=== PATIENT | female | born 1955 | race Caucasian/White ===

== ENCOUNTER 2017-04-12 17:49 | Inpatient (IN) | payer MEDICARE, BC ==
[~2017-04-12] VITALS: Ht 165.1 cm; Wt 103.2 kg
[~2017-04-12 17:49] MED LIST: ATIVAN2 MG PO; AUGMENTIN500TAB PO; BENADRYL 25MG C25 MG PO; CENTRUM SILVER PO; CIPROFLOXACIN250 MG PO; CIPROFLOXACN250 MG PO; CYMBALTA60 MG PO; DIGOXIN0.125 MG PO; DOXAZOSIN1 MG PO; EFFEXOR XR150 MG PO; EQL IBUPROFEN200 MG PO; FENOFIBRATE145 MG PO; FLEXERIL OR; FLEXERIL PO; FLONASE NASAL50 MCG; FLUARIX QUADRIV1 INJ IM; FLULAVAL IM; FLUZONE SPLT1 M1 IM; FUROSEMIDE40 MG PO; GLIPIZIDE5 MG PO; GLYB/METFOR1 PO; HYDROCO/APAP1 TA9 PO; LORTAB 7.5 PO; LOVASTATIN10 M1 PO; LOVASTATIN10 MG PO; LYRICA75 MG PO; MEDDOSEPAK PO; MELOXICAM7.5 MG PO; METFORMIN1000 MG PO; METFORMIN500 MG PO; METHOCARBAM500 MG PO; METRONIDAZOLE500 MG PO; NAPROSYN500 MG PO; NEURONTIN300 MG PO; OMEPRAZOLE20 MG PO; PERCOCET1 TA2 PO; PROVENTIL HFA IN; PROVIGIL100 MG PO; SEROQUEL200 MG PO; SPIRIVA HANDIHALER INH; SYNTHROID50 MCG PO; TEMAZEPAM30 MG PO; TRAZODONE HCL100 MG PO; TRAZODONE150 MG PO; ULTRAM50 M1 PO; VENTOLIN HFA IN; XARELTO10 MG PO; ZITHROMAX500 MG PO; ZPAK PO; ZYRTEC-D AL1 OR; ZYRTEC-D AL1 PO; ZYRTEC-D ALG PO
[2017-04-12 18:19] LABS: URINE BILIRUBIN - DIPSTICK NEGATIVE (NEGATIVE); URINE BLOOD DIPSTICK NEGATIVE (NEGATIVE); URINE COLOR YELLOW; URINE GLUCOSE - DIPSTICK >=1000 mg/dL (NEGATIVE); URINE KETONE NEGATIVE (NEGATIVE); URINE LEUK ESTERASE NEGATIVE (NEGATIVE); URINE PROTEIN - DIPSTICK NEGATIVE (NEG-TRACE); URINE UROBILINOGEN - DIPSTICK 0.2 E.U./dL (0.2)
[2017-04-12] MEDS ORDERED: PROZAC10 MG PO (18:27)
[2017-04-12 18:32] LABS: URINE NITRITE - DIPSTICK POSITIVE (Negative)
[2017-04-12 18:40] LABS: URINE CLARITY TURBID
[2017-04-12 18:41] LABS: URINE BACTERIA MANY hpf; URINE SQUAMOUS EPITHELIAL CELL FEW EPI/hpf (0-FEW)
[2017-04-12 19:05] LABS: HEMATOCRIT 40.3 % (37.0-47.0); HEMOGLOBIN 13.7 g/dl (12.0-16.0); IMMATURE GRANULOCYTES 0.4 % (0.0-1.0); MEAN CELL VOLUME 92.9 fL CALC (80.0-100.0); MEAN CORPUSCULAR HGB 31.6 pG CALC (26.0-32.0); NEUT# 13.01 thou/uL (2.00-7.15); RED BLOOD COUNT 4.34 mill/uL (4.20-5.60); RED CELL DISTRI WIDTH 12.8 % (11.5-15.5)
[2017-04-12 19:18] LABS: ALBUMIN 4.5 g/dL (3.2-5.0); ALKALINE PHOSPHATASE 51 u/l (38-126); ANION GAP 18 (6-22 (CALC)); BILIRUBIN, TOTAL 0.9 mg/dL (0.0-1.4); BUN 13 mg/dL (8-23); BUN/CREATININE RATIO 17 (12-20 (CALC)); CALCIUM 9.5 mg/dL (8.4-10.2); CARBON DIOXIDE 26 mmol/l (22-30); CHLORIDE 99 mmol/l (95-108); CREATININE 0.8 mg/dL (0.5-1.0); GFR > 60 ML/MIN (>=60 (CALC)); GFR FOR AFR.AMER. > 60 ML/MIN (>=60 (CALC)); GLUCOSE 199 mg/dL (82-115); POTASSIUM 3.2 mmol/l (3.5-5.1); SGOT/AST 23 u/l (9-36); SGPT/ALT 27 u/l (11-66); SODIUM 140 mmol/l (137-146); TOTAL PROTEIN 7.6 g/dL (6.3-8.2)
[2017-04-12 19:20] LABS: ACT PARTIAL THROMBO TIME 25.8 SECONDS (20.0-32.5); PROTHROMBIN TIME 10.7 SECONDS (9.0-12.5)
[2017-04-13] VITALS (12 sets, daily range): BP systolic 94–135; BP diastolic 38–77
[2017-04-14 00:28] VITALS: BP 117/70
[2017-04-14 03:52] VITALS: BP 113/70
[2017-04-14 05:57] LABS: HEMATOCRIT 34.8 % (37.0-47.0); HEMOGLOBIN 11.2 g/dl (12.0-16.0); IMMATURE GRANULOCYTES 0.3 % (0.0-1.0); MEAN CELL VOLUME 98.3 fL CALC (80.0-100.0); MEAN CORPUSCULAR HGB 31.6 pG CALC (26.0-32.0); MEAN CORPUSCULAR HGB CONC 32.2 g/L CALC (32.0-36.0); NEUT# 8.22 thou/uL (2.00-7.15); RED BLOOD COUNT 3.54 mill/uL (4.20-5.60); RED CELL DISTRI WIDTH 13.3 % (11.5-15.5)
[2017-04-14 06:04] LABS: ALBUMIN 3.1 g/dL (3.2-5.0); ALKALINE PHOSPHATASE 43 u/l (38-126); ANION GAP 14 (6-22 (CALC)); BILIRUBIN, TOTAL 0.5 mg/dL (0.0-1.4); BUN 22 mg/dL (8-23); BUN/CREATININE RATIO 23 (12-20 (CALC)); CALCIUM 7.3 mg/dL (8.4-10.2); CARBON DIOXIDE 25 mmol/l (22-30); CHLORIDE 105 mmol/l (95-108); CREATININE 0.9 mg/dL (0.5-1.0); GFR > 60 ML/MIN (>=60 (CALC)); GFR FOR AFR.AMER. > 60 ML/MIN (>=60 (CALC)); GLUCOSE 203 mg/dL (82-115); POTASSIUM 3.6 mmol/l (3.5-5.1); SGOT/AST 28 u/l (9-36); SGPT/ALT 28 u/l (11-66); SODIUM 140 mmol/l (137-146); TOTAL PROTEIN 5.5 g/dL (6.3-8.2)
[2017-04-14 09:01] VITALS: BP 131/75
[2017-04-14 16:00] VITALS: BP 141/72
[2017-04-14 19:10] VITALS: BP 110/64
[2017-04-14 23:29] VITALS: BP 112/64
[2017-04-15 05:05] VITALS: BP 141/77
[2017-04-15 05:57] LABS: HEMATOCRIT 31.3 % (37.0-47.0); HEMOGLOBIN 10.1 g/dl (12.0-16.0); IMMATURE GRANULOCYTES 1.4 % (0.0-1.0); MEAN CELL VOLUME 98.7 fL CALC (80.0-100.0); MEAN CORPUSCULAR HGB 31.9 pG CALC (26.0-32.0); MEAN CORPUSCULAR HGB CONC 32.3 g/L CALC (32.0-36.0); NEUT# 7.25 thou/uL (2.00-7.15); RED BLOOD COUNT 3.17 mill/uL (4.20-5.60); RED CELL DISTRI WIDTH 13.2 % (11.5-15.5)
[2017-04-15 06:08] LABS: ALBUMIN 2.7 g/dL (3.2-5.0); ALKALINE PHOSPHATASE 39 u/l (38-126); ANION GAP 11 (6-22 (CALC)); BILIRUBIN, TOTAL 0.4 mg/dL (0.0-1.4); BUN 22 mg/dL (8-23); BUN/CREATININE RATIO 23 (12-20 (CALC)); CALCIUM 7.2 mg/dL (8.4-10.2); CARBON DIOXIDE 27 mmol/l (22-30); CHLORIDE 103 mmol/l (95-108); GFR 56 ML/MIN (>=60 (CALC)); GFR FOR AFR.AMER. > 60 ML/MIN (>=60 (CALC)); GLUCOSE 171 mg/dL (82-115); POTASSIUM 3.4 mmol/l (3.5-5.1); SGOT/AST 57 u/l (9-36); SGPT/ALT 31 u/l (11-66); SODIUM 138 mmol/l (137-146); TOTAL PROTEIN 5.5 g/dL (6.3-8.2)
[2017-04-15 09:38] VITALS: BP 117/63
[2017-04-15 12:25] VITALS: BP 123/76
[2017-04-15 17:00] VITALS: BP 137/78
[2017-04-15 20:45] VITALS: BP 133/76
[2017-04-16 04:45] VITALS: BP 121/62
[2017-04-16 06:10] LABS: HEMATOCRIT 33.1 % (37.0-47.0); HEMOGLOBIN 10.6 g/dl (12.0-16.0); IMMATURE GRANULOCYTES 0.8 % (0.0-1.0); MEAN CELL VOLUME 97.6 fL CALC (80.0-100.0); MEAN CORPUSCULAR HGB 31.3 pG CALC (26.0-32.0); NEUT# 5.78 thou/uL (2.00-7.15); RED BLOOD COUNT 3.39 mill/uL (4.20-5.60); RED CELL DISTRI WIDTH 13.2 % (11.5-15.5)
[2017-04-16 06:23] LABS: ANION GAP 14 (6-22 (CALC)); BUN 14 mg/dL (8-23); BUN/CREATININE RATIO 21 (12-20 (CALC)); CALCIUM 8.1 mg/dL (8.4-10.2); CARBON DIOXIDE 28 mmol/l (22-30); CHLORIDE 103 mmol/l (95-108); CREATININE 0.7 mg/dL (0.5-1.0); GFR > 60 ML/MIN (>=60 (CALC)); GFR FOR AFR.AMER. > 60 ML/MIN (>=60 (CALC)); GLUCOSE 135 mg/dL (82-115); POTASSIUM 3.3 mmol/l (3.5-5.1); SODIUM 141 mmol/l (137-146)
[2017-04-16 07:58] VITALS: BP 143/43
[2017-04-16 12:15] VITALS: BP 140/69
[2017-04-16 16:00] VITALS: BP 144/72
[2017-04-17 04:00] VITALS: BP 137/59
[2017-04-17 06:12] LABS: HEMATOCRIT 32.1 % (37.0-47.0); HEMOGLOBIN 10.7 g/dl (12.0-16.0); MEAN CELL VOLUME 94.7 fL CALC (80.0-100.0); MEAN CORPUSCULAR HGB 31.6 pG CALC (26.0-32.0); MEAN CORPUSCULAR HGB CONC 33.3 g/L CALC (32.0-36.0); NEUT# 6.41 thou/uL (2.00-7.15); RED BLOOD COUNT 3.39 mill/uL (4.20-5.60); RED CELL DISTRI WIDTH 13.1 % (11.5-15.5)
[2017-04-17 06:32] LABS: ANION GAP 14 (6-22 (CALC)); BUN 11 mg/dL (8-23); BUN/CREATININE RATIO 18 (12-20 (CALC)); CALCIUM 8.6 mg/dL (8.4-10.2); CARBON DIOXIDE 28 mmol/l (22-30); CHLORIDE 102 mmol/l (95-108); CREATININE 0.6 mg/dL (0.5-1.0); GFR > 60 ML/MIN (>=60 (CALC)); GFR FOR AFR.AMER. > 60 ML/MIN (>=60 (CALC)); GLUCOSE 141 mg/dL (82-115); POTASSIUM 3.4 mmol/l (3.5-5.1); SODIUM 141 mmol/l (137-146)
[2017-04-17 07:40] VITALS: BP 135/51
[2017-04-17] MEDS ORDERED: CIPROFLOXACN500 MG PO (08:29)
[2017-04-17] MEDS ORDERED: PERCOCET 5/321 COMBO PO (08:30)
== END 2017-04-17 13:47 | disposition home health service (06) | DRG 336 ==
LOC: ENPENDDIS → ED 17:49 → ED-I 21:20 → ED 22:30 → MS2 22:31
PROVIDERS: Emergency Medicine; ADMIT Internal Medicine; ATTEND Internal Medicine Geriatric Medicine
PROC: 0DTJ0ZZ Resection of Appendix, Open Approach (ICD-10-PCS; principal; 2017-04-13)
PROC: 0DNH0ZZ Release Cecum, Open Approach (ICD-10-PCS; 2017-04-13)
PROC: 0DJD4ZZ Inspection of Lower Intestinal Tract, Percutaneous Endoscopic Approach (ICD-10-PCS; 2017-04-13)
PROC: 0DNJ0ZZ Release Appendix, Open Approach (ICD-10-PCS; 2017-04-13)
DX: K35.3 Acute appendicitis with localized peritonitis (principal); N39.0 Urinary tract infection, site not specified; K21.9 Gastro-esophageal reflux disease without esophagitis; E11.9 Type 2 diabetes mellitus without complications; E78.5 Hyperlipidemia, unspecified; B96.20 Unspecified Escherichia coli [E. coli] as the cause of diseases classified elsewhere; K66.0 Peritoneal adhesions (postprocedural) (postinfection)
CPT/HCPCS: J2710

== ENCOUNTER 2017-06-12 12:20 | Emergency (ER) | payer MEDICARE, BC ==
[~2017-06-12] VITALS: Ht 165.1 cm; Wt 95.0 kg
[~2017-06-12 12:20] MED LIST changes: +CIPROFLOXACN500 MG PO; +PERCOCET 5/321 COMBO PO; +PROZAC10 MG PO
[2017-06-12 13:31] VITALS: BP 136/60
== END 2017-06-12 13:36 | disposition home or self-care (01) ==
LOC: ED 12:20
DX: T81.31XA Disruption of external operation (surgical) wound, not elsewhere classified, initial encounter (principal); E11.9 Type 2 diabetes mellitus without complications; K21.9 Gastro-esophageal reflux disease without esophagitis; E78.5 Hyperlipidemia, unspecified; Y83.6 Removal of other organ (partial) (total) as the cause of abnormal reaction of the patient, or of later complication, without mention of misadventure at the time of the procedure

== ENCOUNTER 2017-08-26 11:35 | Day surgery (SDC) | payer MEDICARE, BC ==
[~2017-08-26] VITALS: Ht 165.1 cm; Wt 96.6 kg
[~2017-08-26 11:35] MED LIST changes: +KLOR-CON M2020 MEQ PO
[2017-08-26] MEDS ORDERED: AUGMENTIN875TAB PO ×2 (14:56→15:03)
[2017-08-26 15:34] VITALS: BP 123/56
== END 2017-08-26 15:15 | disposition home or self-care (01) ==
LOC: ORM 11:35
PROVIDERS: ATTEND Surgery
PROC: 0JB80ZZ Excision of Abdomen Subcutaneous Tissue and Fascia, Open Approach (ICD-10-PCS; principal; 2017-08-26)
DX: T81.89XA Other complications of procedures, not elsewhere classified, initial encounter (principal); Y83.6 Removal of other organ (partial) (total) as the cause of abnormal reaction of the patient, or of later complication, without mention of misadventure at the time of the procedure

== ENCOUNTER 2017-09-10 07:53 | Emergency (ER) | payer MEDICARE, BC ==
[~2017-09-10] VITALS: Ht 165.1 cm; Wt 96.8 kg
[~2017-09-10 07:53] MED LIST changes: +AUGMENTIN875TAB PO
[2017-09-10 07:55] VITALS: BP 129/58
[2017-09-10 08:12] LABS: URINE BILIRUBIN - DIPSTICK NEGATIVE (NEGATIVE); URINE BLOOD DIPSTICK LARGE (NEGATIVE); URINE CLARITY CLOUDY; URINE COLOR YELLOW; URINE GLUCOSE - DIPSTICK NEGATIVE (NEGATIVE); URINE KETONE NEGATIVE (NEGATIVE); URINE LEUK ESTERASE MODERATE (NEGATIVE); URINE NITRITE - DIPSTICK POSITIVE (Negative); URINE PROTEIN - DIPSTICK 100 mg/dL (NEG-TRACE); URINE SPECIFIC GRAVITY 1.025; URINE UROBILINOGEN - DIPSTICK 0.2 E.U./dL (0.2)
[2017-09-10 08:17] LABS: URINE RBC TNTC RBC/hpf (0-5); URINE SQUAMOUS EPITHELIAL CELL FEW EPI/hpf (0-FEW); URINE WBC TNTC WBC/hpf (0-5)
[2017-09-10 08:18] LABS: URINE BACTERIA MANY hpf
[2017-09-10] MEDS ORDERED: PYRIDIUM200 MG PO (08:27)
[2017-09-10] MEDS ORDERED: CIPROFLOXACN500 MG PO (08:27)
== END 2017-09-10 08:39 | disposition home or self-care (01) ==
LOC: ED 07:53
PROVIDERS: Emergency Medicine
DX: N39.0 Urinary tract infection, site not specified (principal); E11.9 Type 2 diabetes mellitus without complications; K21.9 Gastro-esophageal reflux disease without esophagitis; E78.5 Hyperlipidemia, unspecified; B96.20 Unspecified Escherichia coli [E. coli] as the cause of diseases classified elsewhere

== ENCOUNTER 2018-06-07 15:51 | Observation (INO) | payer MEDICARE, BC ==
[~2018-06-07] VITALS: Ht 165.1 cm; Wt 109.3 kg
[~2018-06-07 15:51] MED LIST changes: +PYRIDIUM200 MG PO
[2018-06-07 16:10] VITALS: BP 149/88
--- NOTE | 2018-06-07 16:33 | NUR ---
ARRIVED ON UNIT DIRECT ADMIT SENT BY DR TORREZ, ALERT AND ORIENTED X 4, ORIENTED TO ROOM AND CALL MENDOZA, C/O ACHING PAIN TO LEFT FLANK @ 6/10, AT THIS TIME, ORIENTED TO ROOM AND CALL KELLY, SETTLED IN BED, WILL CONTINUE TO MONITOR.
[2018-06-07 17:29] LABS: ANION GAP 13 (6-22 (CALC)); BUN 24 mg/dL (8-23); BUN/CREATININE RATIO 38 (12-20 (CALC)); CARBON DIOXIDE 26 mmol/l (22-30); CHLORIDE 105 mmol/l (95-108); CREATININE 0.6 mg/dL (0.5-1.0); GFR > 60 ML/MIN (>=60 (CALC)); GFR FOR AFR.AMER. > 60 ML/MIN (>=60 (CALC)); SODIUM 139 mmol/l (137-146)
[2018-06-07 17:57] LABS: URINE BILIRUBIN - DIPSTICK NEGATIVE (NEGATIVE); URINE BLOOD DIPSTICK NEGATIVE (NEGATIVE); URINE COLOR YELLOW; URINE GLUCOSE - DIPSTICK >=1000 mg/dL (NEGATIVE); URINE KETONE NEGATIVE (NEGATIVE); URINE LEUK ESTERASE NEGATIVE (NEGATIVE); URINE PROTEIN - DIPSTICK NEGATIVE (NEG-TRACE); URINE SPECIFIC GRAVITY >=1.030; URINE UROBILINOGEN - DIPSTICK 0.2 E.U./dL (0.2)
[2018-06-07 18:02] LABS: URINE CLARITY HAZY; URINE NITRITE - DIPSTICK POSITIVE (Negative)
[2018-06-07 18:15] LABS: URINE BACTERIA MODERATE hpf; URINE SQUAMOUS EPITHELIAL CELL FEW EPI/hpf (0-FEW)
--- NOTE | 2018-06-07 19:00 | NUR ---
RECEIVED CHANGE OF SHIFT REPORT FROM KOFI DAO. PT ALERT AND ORIENTED X 3 AND RESTING IN BED. NO APPARENT ACUTE DISTRESS NOTED. WILL CONTINUE TO MONITOR.
[2018-06-07 19:10] VITALS: BP 133/67
[2018-06-08 04:00] VITALS: BP 140/74
--- NOTE | 2018-06-08 04:00 | NUR ---
NO APPARENT ACUTE CHANGES NOTED IN PT'S CONDITION.
[2018-06-08 05:40] LABS: HEMATOCRIT 39.2 % (37.0-47.0); HEMOGLOBIN 13.5 g/dl (12.0-16.0); IMMATURE GRANULOCYTES 1.3 % (0.0-1.0); MEAN CELL VOLUME 94.5 fL CALC (80.0-100.0); MEAN CORPUSCULAR HGB 32.5 pG CALC (26.0-32.0); MEAN CORPUSCULAR HGB CONC 34.4 g/L CALC (32.0-36.0); NEUT# 5.32 thou/uL (2.00-7.15); RED BLOOD COUNT 4.15 mill/uL (4.20-5.60); RED CELL DISTRI WIDTH 12.2 % (11.5-15.5)
[2018-06-08 05:51] LABS: ALBUMIN 3.5 g/dL (3.2-5.0); ALKALINE PHOSPHATASE 70 u/l (38-126); ANION GAP 13 (6-22 (CALC)); BILIRUBIN, TOTAL 0.3 mg/dL (0.0-1.4); BUN 23 mg/dL (8-23); BUN/CREATININE RATIO 43 (12-20 (CALC)); CARBON DIOXIDE 28 mmol/l (22-30); CHLORIDE 104 mmol/l (95-108); CREATININE 0.5 mg/dL (0.5-1.0); GFR > 60 ML/MIN (>=60 (CALC)); GFR FOR AFR.AMER. > 60 ML/MIN (>=60 (CALC)); POTASSIUM 4.4 mmol/l (3.5-5.1); SGOT/AST 22 u/l (9-36); SGPT/ALT 34 u/l (11-66); SODIUM 141 mmol/l (137-146); TOTAL PROTEIN 6.3 g/dL (6.3-8.2)
--- NOTE | 2018-06-08 07:03 | NUR ---
BEDSIDE REPORT RECEIVED BY ANG. PT IS RESTING IN BED AND DENIES NEEDS AT THIS TIME. CALL LIGHT IN REACH.
[2018-06-08 08:00] VITALS: BP 151/84
--- NOTE | 2018-06-08 08:01 | NUR ---
PT IS SITTING IN THE SIDE OF THE BED. ASSESSMENT DONE. TELE IN PLACE. RESPS EVNE AND UNLABORED. NS 100ML/HR INFUSING WELL. PT STATED THAT ZOFRAN HELPED. SAFETY PRECAUTIONS REINFORCED AND CALL LIGHT IN REACH.
[2018-06-08 11:01] VITALS: BP 126/75
--- NOTE | 2018-06-08 12:02 | NUR ---
PT IS RESTING IN BED AND DENIES PAIN AT THIS TIME. PT DENIES NEEDS AT THIS TIME. CALL LIGHT IN REACH.
[2018-06-08 15:15] VITALS: BP 140/75
[2018-06-08] MEDS ORDERED: IBUPROFEN200 MG PO (15:32)
--- NOTE | 2018-06-08 16:00 | NUR ---
PT IS RESTING IN BED AND DENIES PAIN AT THIS TIME. PT DENIES NEEDS AT THIS TIME. CALL LIGHT IN REACH.
[2018-06-08] MEDS ORDERED: FENOFIBRATE145 MG PO (17:58)
[2018-06-08] MEDS ORDERED: KLOR-CON M2020 MEQ PO (17:58)
[2018-06-08] MEDS ORDERED: CIPROFLOXACN500 MG PO (17:58)
--- NOTE | 2018-06-08 19:02 | NUR ---
Discharge instructions given. Patient verbalizes understanding of same. Discharged in stable condition via Wheelchair to Home with staff. All belongings sent with pt.
== END 2018-06-08 19:00 | disposition home or self-care (01) ==
LOC: MS2 15:51
PROVIDERS: ADMIT Internal Medicine Geriatric Medicine; ATTEND Internal Medicine Geriatric Medicine
DX: N23 Unspecified renal colic (principal); K59.00 Constipation, unspecified; E11.9 Type 2 diabetes mellitus without complications; I10 Essential (primary) hypertension; I25.10 Atherosclerotic heart disease of native coronary artery without angina pectoris; F41.1 Generalized anxiety disorder; F31.9 Bipolar disorder, unspecified; E66.9 Obesity, unspecified; K21.9 Gastro-esophageal reflux disease without esophagitis; M19.90 Unspecified osteoarthritis, unspecified site; E03.9 Hypothyroidism, unspecified; E78.5 Hyperlipidemia, unspecified; Z68.41 Body mass index [BMI] 40.0-44.9, adult; Z95.5 Presence of coronary angioplasty implant and graft
CPT/HCPCS: Q9967

== ENCOUNTER → 2018-08-30 | Outpatient (REF) | payer MEDICARE, BC ==
[~2018-08-30] MED LIST changes: +IBUPROFEN200 MG PO
[2018-08-30 08:41] LABS: HEMATOCRIT 40.6 % (37.0-47.0); HEMOGLOBIN 13.9 g/dl (12.0-16.0); IMMATURE GRANULOCYTES 0.2 % (0.0-5.0); MEAN CELL VOLUME 93.1 fL CALC (80.0-100.0); MEAN CORPUSCULAR HGB 31.9 pG CALC (26.0-32.0); MEAN CORPUSCULAR HGB CONC 34.2 g/L CALC (32.0-36.0); NEUT# 4.29 thou/uL (2.00-7.15); RED BLOOD COUNT 4.36 mill/uL (4.20-5.60); RED CELL DISTRI WIDTH 12.5 % (11.5-15.5)
[2018-08-30 09:02] LABS: ALBUMIN 3.8 g/dL (3.2-5.0); ALKALINE PHOSPHATASE 72 u/l (38-126); ANION GAP 16 (6-22 (CALC)); BILIRUBIN, TOTAL 0.5 mg/dL (0.0-1.4); BUN 23 mg/dL (8-23); BUN/CREATININE RATIO 35 (12-20 (CALC)); CALCULATED LDLCHOLESTEROL 82 mg/dL (62-129 (CALC)); CARBON DIOXIDE 27 mmol/l (22-30); CHLORIDE 104 mmol/l (95-108); CHOLESTEROL HDL RATIO 3.7 (<4.4 (CALC)); CREATININE 0.6 mg/dL (0.5-1.0); GFR > 60 ML/MIN (>=60 (CALC)); GFR FOR AFR.AMER. > 60 ML/MIN (>=60 (CALC)); HDL CHOLESTEROL 41 mg/dL (>=40); POTASSIUM 3.7 mmol/l (3.5-5.1); SGOT/AST 26 u/l (9-36); SODIUM 142 mmol/l (137-146); TOTAL CHOLESTEROL 153 mg/dl (0-199); TOTAL PROTEIN 6.8 g/dL (6.3-8.2); TOTAL TRIGLYCERIDES 150 mg/dl (30-149); VLDL CHOLESTROL 30 mg/dl (1-41 (CALC))
== END | disposition home or self-care (01) ==
LOC: LAB 08:13
PROVIDERS: ATTEND Internal Medicine Geriatric Medicine
DX: E78.2 Mixed hyperlipidemia (principal); E11.9 Type 2 diabetes mellitus without complications; I10 Essential (primary) hypertension; E10.9 Type 1 diabetes mellitus without complications; E87.6 Hypokalemia

== ENCOUNTER 2020-01-16 | Emergency (ER) | payer MEDICARE, BC ==
[2020-01-16 18:47] LABS: HEMATOCRIT 42.8 % (37.0-47.0); HEMOGLOBIN 14.2 g/dl (12.0-16.0); IMMATURE GRANULOCYTES 0.5 % (0.0-5.0); MEAN CELL VOLUME 94.3 fL CALC (80.0-100.0); MEAN CORPUSCULAR HGB 31.3 pG CALC (26.0-32.0); MEAN CORPUSCULAR HGB CONC 33.2 g/L CALC (32.0-36.0); NEUT# 4.62 thou/uL (2.00-7.15); RED BLOOD COUNT 4.54 mill/uL (4.20-5.60); RED CELL DISTRI WIDTH 12.2 % (11.5-15.5)
[2020-01-16 19:13] LABS: ALBUMIN 4.1 g/dL (3.2-5.0); ALKALINE PHOSPHATASE 66 u/l (38-126); ANION GAP 13 (6-22 (CALC)); BILIRUBIN, TOTAL 0.6 mg/dL (0.0-1.4); BUN 13 mg/dL (8-23); BUN/CREATININE RATIO 20 (12-20 (CALC)); CARBON DIOXIDE 28 mmol/l (22-30); CHLORIDE 101 mmol/l (95-108); CREATININE 0.6 mg/dL (0.5-1.0); GFR > 60 ML/MIN (>=60 (CALC)); GFR FOR AFR.AMER. > 60 ML/MIN (>=60 (CALC)); LIPASE 98 u/l (23-300); POTASSIUM 3.8 mmol/l (3.5-5.1); SGOT/AST 32 u/l (9-36); SODIUM 138 mmol/l (137-146); TOTAL PROTEIN 7.2 g/dL (6.3-8.2)
== END 2020-01-16 19:56 | disposition home or self-care (01) ==
PROVIDERS: Family Medicine
DX: R07.81 Pleurodynia (principal); E11.9 Type 2 diabetes mellitus without complications; I10 Essential (primary) hypertension; Z79.84 Long term (current) use of oral hypoglycemic drugs